=== PATIENT | female | born 1935 ===

== ENCOUNTER 2017-08-18 12:35 | Emergency (ER) | payer OTHER ==
[~2017-08-18] VITALS: Ht 121.9 cm; Wt 43.5 kg
[2017-08-18] MEDS ORDERED: ARICEPT5 MG (12:59)
== END 2017-08-18 18:26 | disposition home or self-care (01) ==
LOC: ER 12:35
DX: S39.012A Strain of muscle, fascia and tendon of lower back, initial encounter (principal); M54.5 Low back pain; M41.9 Scoliosis, unspecified; W18.39XA Other fall on same level, initial encounter; Y93.01 Activity, walking, marching and hiking; Y92.018 Other place in single-family (private) house as the place of occurrence of the external cause; Y99.8 Other external cause status